=== PATIENT | male | born 1970 | race African-American/Black ===

== ENCOUNTER 2024-12-27 08:41 | Outpatient (CLI) | payer OTHER, SELFPAY ==
--- OUTSIDE RECORDS SUMMARY | 2024-12-27 09:02 | XMS_ITS | Data Portability ---
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 They differential diagnosis includes a neuropathic process that could be structural or metabolic. He has an abnormal neurological exam with the positive Romberg's impaired gait and abnormal sensory exam of the left lower extremity. The balance impairment is also concerning for a central cause, hence the need for imaging of the brain. I have had a detailed discussion with Mr. Escobar and I have explained the plan to him in detail as well as the differential diagnosis. lanny Not available 11/24/2024 16:30:38 Plan of Treatment Reminders Order Date Submit Date Provider Last Modified By Organization Details Last Modified Time Details Appointments ANY 15 2024 11:45A M Irena Hwang MD Not available Not available Not available Lab lipid panel, serum 2024 025 oajao [facility], [address], [address], [place], [address], 12/22/2024 11:46:43 AST/SG OT (aspar pulliam aminot ransfe rase), serum or plasma 2024 025 oaemiro [facility], [facility] [address], [address], [place], [address], 12/22/2024 11:46:11 cobala min and folate panel, serum 2024 025 lanny [facility], [address], [address], [place], [address], 12/22/2024 11:46:11 PSA, total, serum or plasma 2024 025 BRANDT [facility], [address], [address], [place], [address], 12/18/2024 09:11:58 CMP, serum or plasma 2024 025 [facility], [address], [address], [place], [address], 12/18/2024 09:11:53 urinal ysis macro (dipst ick) panel, urine 2024 [facility], [address], [address], [place], [address], 12/18/2024 09:11:55 CBC w/ auto diff 2024 025 [facility], [address] [facility] [address], [address], [place], [address], 12/18/2024 09:11:57 lipid panel, serum 2024 025 [facility], [address] [facility] [address], [address], [place], [address], 12/18/2024 09:11:52 Hepati tis C IgG Ab, qual, serum 2024 025 BR[facility]T [facility], [address], [address], [place], [address], 12/18/2024 09:11:51 HIV 1 + 2, meanin gful use set 2024 025 [facility], [address], [address], [place], [address], 12/18/2024 09:11:59 CBC 2024 025 [facility], [address], [address], [place], [address], 12/21/2024 16:57:56 vitami n D, 25-hyd shae, total, serum 2024 025 BRANDT [facility], [address], [address], [place], [address], 12/18/2024 09:11:59 vitami n B12, serum 2024 025 TOL[facility]O [facility], [address], [address], [place], [address], 12/18/2024 09:11:54 TSH, ultra- sensit gualberto, serum 2024 025 [facility], [address], [address], [place], [address], 12/18/2024 09:11:56 Referral urolog ist referr al 2024 025 ATHDULCE MARIAX [facility], [address] [place] [address], [address], [place], [address], 12/23/2024 14:40:00 pulmon ologis t referr al 2024 025 NYA Real MD, [address] [place], [address], 12/23/2024 14:39:49 gastro entero logist referr al [email or web address] [facility], [address], [place], [address], 11/26/2024 10:19:12 Procedures colono scopy proced ure (PROC) - If patien t is on blood thinne r less than 6 month, cleara nce is requir ed by prescr ibing provid er. If patien t is on blood thinne r over 6 months , blood thinne r is suppos ed to stoppe d 5 days prior to proced ure. Pacema ker or defibr illato r?: N Prep (Colon oscopy Proced ure): PEG 3350, Go Lytely , Colyte or Gavaly te G, depend ing on insura nce covera ge If patien t has had villela ry / vascul ar stent, provid e date: No If patien t has had heart attack or stroke , provid e date: No Has patien t ever had proble ms with anesth esia or sedati on?: No Has patien t had proble ms with openin g mouth or breath ing tubes? : No Does patien t use a wheelc hair?: N 2024 025 [facility] ([facility] Sched), [address] [place], [address], 12/20/2024 10:37:06 nerve conduc tion study/ EMG, lower extrem ity (PROC) - L>R LE numbne ss and weakne ss 2024 025 [facility] (Cardiology & Emg), [address], [place], [address], 12/22/2024 11:59:14 Surgeries None record ed. Imaging XR, thorac ic spine - Compre ssion deform ity of T8 on the LDCT 2024 025 [facility] (One Call Scheduling), [address] [place], [address], 12/22/2024 12:01:31 XR, lumbos acral spine, comple te - Back pain, L>R lower extrem ity weakne ss and numbne ss 2024 025 [facility] (One Call Scheduling), [address] [place], [address], 12/09/2024 10:57:42 MRI, brain, w/o contra st - Poor balanc e, severe headac hes 2024 025 [facility] (One Call Scheduling), [address] [place], [address], 12/22/2024 11:59:00 LDCT, chest, for lung cancer screen ing 2024 025 [facility] (One Call Scheduling), [address] [place], [address], 12/10/2024 15:55:36 Medication Orders Dulcol ax (bisac odyl) 5 mg tablet ,delay ed releas e 2024 025 [id number], [address], [place], [place], [id number], 12/02/2024 11:52:41 Mirala x 17 gram/d ose oral powder 2024 025 [facility] #[id number], [address] , [place], [place], [id number], 12/02/2024 11:52:40 Patient TargetsNo targets recorded. Patient Instructions Encounter Date Encounter Id Patient Instructions Last Modified By Organization Details Last Modified Time 11/24/2024 [id number] Copy of the old CT scan of the brain from [facility], please Labs GI Stop smoking Xrays MRI LDCT EMG/NCS Prevnar on the follow up if he agrees, pt education materials ruth provided Follow up in 4 weeks lanny Not available 11/25/2024 09:09:30 Very detailed initial visit. oajao Not available 11/25/2024 09:09:55 12/02/2024 [id number] RL About Your Colonoscopy 1 Day Prep [email or web address] Not available 12/02/2024 11:52:35 12/22/2024 [id number] compression fracture of the spine: care instructions [email or web address] Not available 12/22/2024 11:44:08 X rays MRI and EMG/NCS as previously ordered Low fat, low CHO diet Stop smoking Labs in 4 weeks Urology Pulmonology Follow up in 6 weeks [email or web address] Not available 12/22/2024 11:47:49 Reason for Referral Installation Technician Referral for Screening for malignant neoplasm of colon Colon cancer screening, please Referring Physician: Irena Hwang, Internal Medicine, Encounter Date: 11/24/2024 [place] Monitoring Technician Referral for C T of chest abnormal Abnormal LDCT Referring Physician: Irena Hwang, Internal Medicine, Encounter Date: 12/22/2024 Urologist Referral for Micro scopic hematuria Microscopic hematuria Referring Physician: Irena Hwang, Internal Medicine, Encounter Date: 12/22/2024 Results Created Date Observation Date Name Description Value Unit Range Abnormal Flag Note LastModifiedBy Organization Detail LastModifiedTime 12/18/1912/18/2024 HCV ANTIB NELLY hep C virus Ab NON REACTI VE nonrea ctive HCV antib nelly alone does not diffe renti ate betwe en previ ously resol jennifer infec tion and activ e infec tion. Equiv ocal and React gualberto HCV antib nelly resul ts shoul d be follo wed up with an HCV RNA test to suppo rt the diagn osis of activ e HCV infec tion. Not Available [facility] ([facility]) [address], [place], [address], 12/18/2024 09:11:51 12/18/19 25 12/18/2024 LIPID PANEL cholesterol, total 188 mg/dL 100-19 9 Not Available [facility] ([facility]) [address], [place], [address], 12/18/2024 09:11:52 12/18/19 25 12/18/2024 LIPID PANEL triglyceride s 82 mg/dL 0-149 Not Available [facility] ([facility]) [address] [place], [address], 12/18/2024 09:11:52 12/18/19 25 12/18/2024 LIPID PANEL HDL cholesterol 61 mg/dL >39 Not Available [facility] ([facility]) [address] [place], [address], 12/18/2024 09:11:52 12/18/19 25 12/18/2024 LIPID PANEL VLDL cholesterol susie 15 mg/dL 5-40 Not Available [facility] ([facility]) [address] [place], [address], 12/18/2024 09:11:52 12/18/19 25 12/18/2024 LIPID PANEL LDL chol calc ([facility]) 112 mg/dL 0-99 above high normal Not Available [facility] ([facility]) [address] [place], [address], 12/18/2024 09:11:52 12/18/19 25 12/18/2024 COMP. METAB OLIC PANEL (14) glucose 90 mg/dL 70-99 Not Available [facility] ([facility]) [address] [place], [address], 12/18/2024 09:11:53 12/18/19 25 12/18/2024 COMP. METAB OLIC PANEL (14) BUN 8 mg/dL 6-24 Not Available [facility] ([facility]) [address] [place], [address], 12/18/2024 09:11:53 12/18/19 25 12/18/2024 COMP. METAB OLIC PANEL (14) creatinine 0.94 mg/dL 0.76-1 .27 Not Available [facility] ([facility]) [address] [place], [address], 12/18/2024 09:11:53 12/18/19 25 12/18/2024 COMP. METAB OLIC PANEL (14) eGFR 95 mL/mi n/1.7 3 >59 Not Available [facility] ([facility]) [address], [place], [address], 12/18/2024 09:11:53 12/18/19 25 12/18/2024 COMP. METAB OLIC PANEL (14) BUN/creatini ne ratio 9 9-20 Not Available [facility] ([facility]) [address], [place], [address], 12/18/2024 09:11:53 12/18/19 25 12/18/2024 COMP. METAB OLIC PANEL (14) sodium 140 mmol/ L 134-14 4 Not Available [facility] ([facility]) [address], [place], [address], 12/18/2024 09:11:53 12/18/19 25 12/18/2024 COMP. METAB OLIC PANEL (14) potassium 4.0 mmol/ L 3.5-5. 2 Not Available [facility] ([facility]) [address], [place], [address], 12/18/2024 09:11:53 12/18/19 25 12/18/2024 COMP. METAB OLIC PANEL (14) chloride 103 mmol/ L 96-106 Not Available [facility] ([facility]) [address], [place], [address], 12/18/2024 09:11:53 12/18/19 25 12/18/2024 COMP. METAB OLIC PANEL (14) carbon dioxide, total 19 mmol/ L 20-29 below low normal Not Available [facility] ([facility]) [address], [place], [address], 12/18/2024 09:11:53 12/18/19 25 12/18/2024 COMP. METAB OLIC PANEL (14) calcium 9.1 mg/dL 8.7-10 .2 Not Available [facility] ([facility]) [address], [place], [address], 12/18/2024 09:11:53 12/18/19 25 12/18/2024 COMP. METAB OLIC PANEL (14) protein, total 7.3 g/dL 6.0-8. 5 Not Available [facility] ([facility]) [address], [place], [address], 12/18/2024 09:11:53 12/18/19 25 12/18/2024 COMP. METAB OLIC PANEL (14) albumin 4.3 g/dL 3.8-4. 9 Not Available [facility] ([facility]) [address], [place], [address], 12/18/2024 09:11:53 12/18/19 25 12/18/2024 COMP. METAB OLIC PANEL (14) globulin, total 3.0 g/dL 1.5-4. 5 Not Available [facility] ([facility]) [address], [place], [address], 12/18/2024 09:11:53 12/18/19 25 12/18/2024 COMP. METAB OLIC PANEL (14) bilirubin, total <0.2 mg/dL 0.0-1. 2 Not Available [facility] ([facility]) [address], [place], [address], 12/18/2024 09:11:53 12/18/19 25 12/18/2024 COMP. METAB OLIC PANEL (14) alkaline phosphatase 101 IU/L 44-121 Not Available [facility] ([facility]) [address], [place], [address], 12/18/2024 09:11:53 12/18/19 25 12/18/2024 COMP. METAB OLIC PANEL (14) AST (SGOT) 47 IU/L 0-40 above high normal Not Available [facility] ([facility]) [address], [place], [address], 12/18/2024 09:11:53 12/18/19 25 12/18/2024 COMP. METAB OLIC PANEL (14) ALT (SGPT) 43 IU/L 0-44 Not Available [facility] ([facility]) [address], [place], [address], 12/18/2024 09:11:53 12/18/19 25 12/18/2024 MICRO SCOPI C EXAMI NATIO N WBC 0-5 /hpf 0-5 Not Available [facility] ([facility]) [address], [place], [address], 12/18/2024 09:11:54 12/18/19 25 12/18/2024 MICRO SCOPI C EXAMI NATIO N RBC NONE SEEN /hpf 0-2 Not Available [facility] ([facility]) [address], [place], [address], 12/18/2024 09:11:54 12/18/19 25 12/18/2024 MICRO SCOPI C EXAMI NATIO N epithelial cells (non renal) 0-10 /hpf 0-10 Not Available [facility] ([facility]) [address], [place], [address], 12/18/2024 09:11:54 12/18/19 25 12/18/2024 MICRO SCOPI C EXAMI NATIO N casts NONE SEEN /lpf nonese en Not Available [facility] ([facility]) [address] [place], [address], 12/18/2024 09:11:54 12/18/19 25 12/18/2024 MICRO SCOPI C EXAMI NATIO N bacteria NONE SEEN nonese en/few Not Available [facility] ([facility]) [address] [place], [address], 12/18/2024 09:11:54 12/18/19 25 12/18/2024 VITAM IN B12 vitamin B12 423 pg/mL 232-12 45 Not Available [facility] ([facility]) [address], [place], [address], 12/18/2024 09:11:54 12/18/19 25 12/18/2024 URINA LYSIS , ROUTI NE specific gravity 1.024 1.005- 1.030 Not Available [facility] ([facility]) [address] [place], [address], 12/18/2024 09:11:55 12/18/19 25 12/18/2024 URINA LYSIS , ROUTI NE pH 5.5 5.0-7. 5 Not Available [facility] ([facility]) [address] [place], [address], 12/18/2024 09:11:55 12/18/19 25 12/18/2024 URINA LYSIS , ROUTI NE urine-color YELLOW yellow Not Available [facility] ([facility]) [address] [place], [address], 12/18/2024 09:11:55 12/18/19 25 12/18/2024 URINA LYSIS , ROUTI NE appearance CLEAR clear Not Available [facility] ([facility]) [address] [place], [address], 12/18/2024 09:11:55 12/18/19 25 12/18/2024 URINA LYSIS , ROUTI NE WBC esterase NEGATI VE negati ve Not Available [facility] ([facility]) [address] [place], [address], 12/18/2024 09:11:55 12/18/19 25 12/18/2024 URINA LYSIS , ROUTI NE protein 1+ negati ve/tra ce abnormal Not Available [facility] ([facility]) [address] [place], [address], 12/18/2024 09:11:55 12/18/1912/18/2024 URINA LYSIS , ROUTI NE glucose NEGATI VE negati ve Not Available [facility] ([facility]) [address] [place], [address], 12/18/2024 09:11:55 12/18/19 25 12/18/2024 URINA LYSIS , ROUTI NE ketones NEGATI VE negati ve Not Available [facility] ([facility]) [address] [place], [address], 12/18/2024 09:11:55 12/18/19 25 12/18/2024 URINA LYSIS , ROUTI NE occult blood 1+ negati ve abnormal Not Available [facility] ([facility]) [address] [place], [address], 12/18/2024 09:11:55 12/18/19 25 12/18/2024 URINA LYSIS , ROUTI NE bilirubin NEGATI VE negati ve Not Available [facility] ([facility]) [address] [place], [address], 12/18/2024 09:11:55 12/18/1912/18/2024 URINA LYSIS , ROUTI NE urobilinogen ,semi-qn 0.2 mg/dL 0.2-1. 0 Not Available [facility] ([facility]) [address] [place], [address], 12/18/2024 09:11:55 12/18/1912/18/2024 URINA LYSIS , ROUTI NE nitrite, urine NEGATI VE negati ve Not Available [facility] ([facility]) [address] [place], [address], 12/18/2024 09:11:55 12/18/1912/18/2024 NAIMA LYSIS , ELDER NE microscopic examination SEE BELOW: Micro scopi c was indic ated and was perfo rmed. Not Available [facility] ([facility]) [address] [place], [address], 12/18/2024 09:11:55 12/18/19 25 12/18/2024 TSH TSH 0.457 uIU/m L 0.450- 4.500 Not Available [facility] ([facility]) [address] [place], [address], 12/18/2024 09:11:56 12/18/1912/18/2024 CBC WITH DIFFE RENTI AL/PL ATELE T WBC 4.8 x10e3 /uL 3.4-10 .8 Not Available [facility] ([facility]) [address], [place], [address], 12/18/2024 09:11:57 12/18/1912/18/2024 CBC WITH DIFFE RENTI AL/PL ATELE T RBC 4.17 x10e6 /uL 4.14-5 .80 Not Available [facility] ([facility]) [address] [place], [address], 12/18/2024 09:11:57 12/18/1912/18/2024 CBC WITH DIFFE RENTI AL/PL ATELE T hemoglobin 13.9 g/dL 13.0-1 7.7 Not Available [facility] ([facility]) [address] [place], [address], 12/18/2024 09:11:57 12/18/1912/18/2024 CBC WITH DIFFE RENTI AL/PL ATELE T hematocrit 42.5 % 37.5-5 1.0 Not Available [facility] ([facility]) [address] [place], [address], 12/18/2024 09:11:57 12/18/1912/1812/18/2024 CBC WITH DIFFE RENTI AL/PL ATELE T MCV 102 fL 79-97 above high normal Not Available [facility] ([facility]) [address] [place], [address], 12/18/2024 09:11:57 12/18/19 25 12/18/2024 CBC WITH DIFFE RENTI AL/PL ATELE T MCH 33.3 pg 26.6-3 3.0 above high normal Not Available [facility] ([facility]) [address] [place], [address], 12/18/2024 09:11:57 12/18/1912/18/2024 CBC WITH DIFFE RENTI AL/PL ATELE T MCHC 32.7 g/dL 31.5-3 5.7 Not Available [facility] ([facility]) [address] [place], [address], 12/18/2024 09:11:57 12/18/1912/18/2024 CBC WITH DIFFE RENTI AL/PL ATELE T RDW 12.8 % 11.6-1 5.4 Not Available [facility] ([facility]) [address] [place], [address], 12/18/2024 09:11:57 12/18/1912/18/2024 CBC WITH DIFFE RENTI AL/PL ATELE T platelets 270 x10e3 /uL 150-45 0 Not Available [facility] ([facility]) [address] [place], [address], 12/18/2024 09:11:57 12/18/1912/18/2024 CBC WITH DIFFE RENTI AL/PL ATELE T neutrophils 55 % notest ab. Not Available [facility] ([facility]) [address] [place], [address], 12/18/2024 09:11:57 12/18/1912/18/2024 CBC WITH DIFFE RENTI AL/PL ATELE T lymphs 30 % notest ab. Not Available [facility] ([facility]) [address] [place], [address], 12/18/2024 09:11:57 12/18/19 25 12/18/2024 CBC WITH DIFFE RENTI AL/PL ATELE T monocytes 10 % notest ab. Not Available [facility] ([facility]) [address], [place], [address], 12/18/2024 09:11:57 12/18/19 25 12/18/2024 CBC WITH DIFFE RENTI AL/PL ATELE T eos 4 % notest ab. Not Available [facility] ([facility]) [address], [place], [address], 12/18/2024 09:11:57 12/18/1912/18/2024 CBC WITH DIFFE RENTI AL/PL ATELE T basos 1 % notest ab. Not Available [facility] ([facility]) [address], [place], [address], 12/18/2024 09:11:57 12/18/19 25 12/18/2024 CBC WITH DIFFE RENTI AL/PL ATELE T neutrophils (absolute) 2.6 x10e3 /uL 1.4-7. 0 Not Available [facility] ([facility]) [address] [place], [address], 12/18/2024 09:11:57 12/18/19 25 12/18/2024 CBC WITH DIFFE RENTI AL/PL ATELE T lymphs (absolute) 1.4 x10e3 /uL 0.7-3. 1 Not Available [facility] ([facility]) [address] [place], [address], 12/18/2024 09:11:57 12/18/19 25 12/18/2024 CBC WITH DIFFE RENTI AL/PL ATELE T monocytes(ab solute) 0.5 x10e3 /uL 0.1-0. 9 Not Available [facility] ([facility]) [address] [place], [address], 12/18/2024 09:11:57 12/18/19 25 12/18/2024 CBC WITH DIFFE RENTI AL/PL ATELE T eos (absolute) 0.2 x10e3 /uL 0.0-0. 4 Not Available [facility] ([facility]) [address] [place], [address], 12/18/2024 09:11:57 12/18/1912/18/2024 CBC WITH DIFFE RENTI AL/PL ATELE T baso (absolute) 0.0 x10e3 /uL 0.0-0. 2 Not Available [facility] ([facility]) [address] [place], [address], 12/18/2024 09:11:57 12/18/19 25 12/18/2024 CBC WITH DIFFE RENTI AL/PL ATELE T immature granulocytes 0 % notest ab. Not Available [facility] ([facility]) [address] [place], [address], 12/18/2024 09:11:57 12/18/19 25 12/18/2024 CBC WITH DIFFE RENTI AL/PL ATELE T immature grans (abs) 0.0 x10e3 /uL 0.0-0. 1 Not Available [facility] ([facility]) [address] [place], [address], 12/18/2024 09:11:57 12/18/1912/18/2024 PROST ATE-S PECIF IC AG prostate specific Ag 0.8 NG/mL 0.0-4. 0 Lindsay ECLIA metho dolog y. Accor ding to the Ameri can Urolo gical Assoc iatio n, Serum PSA shoul d decre ase and remai n at undet ectab le level s after radic al prost atect reed. The AUA defin es bioch emica l recur rence as an initi al PSA value 0.2 ng/mL or great er follo wed by a subse quent confi rmato ry PSA value 0.2 ng/mL or great er. Value s obtai karlie with diffe rent assay metho ds or kits canno t be used inter chawla eably . Resul ts canno t be inter prete d as absol jannie evide nce of the prese nce or absen ce of unity hospitalian fisher se. Not Available [facility] ([facility]) [address], [place], [address], 12/18/2024 09:11:58 12/18/1912/18/2024 VITAM IN D, 25-HY DROXY vitamin D, 25-hydroxy 10.5 NG/mL 30.0-1 00.0 below low normal Vitam in D defic iency has been defin ed by the Insti tute of Medic ine and an Endoc rine Socie ty pract ice guide line as a level of serum 25-OH vitam in D less than 20 ng/mL (1,2) . The Endoc rine Socie ty went on to furth er defin e vitam in D insuf ficie ncy as a level betwe en 21 and 29 ng/mL (2). 1. IOM (Inst itute of Medic ine). 2009. Dieta ry refer ence intak es for calci um and D. Heather molina [place]: The Natio nal [facility] Press . 2. Roberto harper MF, Mario torres [place], Bissg off-F errar i BREAUX, et al. Evalu ation , treat ment, and preve ntion of vitam in D defic iency : an Endoc rine Socie ty clini susie pract ice guide line. JCEM. 2010; 96(7) :1911 -30. Not Available [facility] ([facility]) [address], [place], [address], 12/18/2024 09:11:59 12/18/1912/18/2024 HIV AB/P2 4 AG WITH REFLE X HIV Ab/P24 Ag screen NON REACTI VE nonrea ctive HIV-1 /HIV- 2 antib odies and HIV-1 p24 antig en were NOT detec julia. There is no labor atory evide nce of HIV infec tion. HIV Negat gualberto Not Available [facility] ([facility]) [address], [place], [address], 12/18/2024 09:11:59 12/10/1912/09/2024 XR, lumbo sacra l spine , compl ete No observ ation record ed. [facility] [address] [place], [address], 12/22/2024 11:36:48 12/11/1912/09/2024 LDCT, chest , for lung cance r scree evelio No observ ation record ed. [facility] [address] [place], [address], 12/22/2024 11:36:48 Result Notes None recorded. 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 Procedures Surgical History Date Name Laterality Status Provider Name and Address Organization Details Recorded Time lumbar puncture completed Irena Hwang MD Attn: Accounting, [facility], [place], [address], [facility] [place] 11/24/2024 14:30:44 procedure on ear completed Irena Hwang MD Attn: Accounting, [facility], [place], [address], [facility] [place] 11/24/2024 14:31:17 Imaging Results None recorded. Procedure Notes None recorded. Medical Equipment None Reported. Allergies No known drug allergies Medications Name Sig Start Date Stop Date Status Note LastModified by Organization Details LastModified Time Miralax 17 gram/dose oral powder In a pitcher, mix entire bottle of Miralax in one 64 ounce bottle of yellow or green Gatorade. Beginning at 5:00 PM the evening before the colonoscopy , drink 1 8-ounce glass every 15 minutes until completed. Drink 4 glasses of water after finishing this mixture 025 active Not Available Not Available Not Avai lable Dulcolax (bisacodyl ) 5 mg tablet,del ayed release At 2:00 PM the day before the colonoscopy , take all 4 tablets of Dulcolax by mouth at one time with 8 ounces of water 025 active Not Available Not Available Not Avai lable Vitals Date Recorded Body height Body mass index (BMI) Body weight Oxygen saturation Oxygen saturation in Arterial blood by Pulse oximetry Heart rate Body temperature Respiratory rate Systolic And Diastolic Provider Name and Address Organization Details Last Updated DateTime 5 175.26 cm 21.6 kg/m2 75674.4 9 g 96 % 96 % 64 /min 98 [degF] 14 /min 110/80 mm[Hg] Valentina Escobar MA [facility] 5 14:15:45 Date Recorded Body height Body mass index (BMI) Body weight Oxygen saturation Oxygen saturation in Arterial blood by Pulse oximetry Body temperature Respiratory rate Heart rate Systolic And Diastolic Provider Name and Address Organization Details Last Updated DateTime 5 175.26 cm 20.6 kg/m2 10790.7 8 g 98 % 98 % 97 [degF] 16 /min 77 /min 143/79 mm[Hg] Shama Whitaker MA [facility] 5 11:44:46 Date Recorded Body height Body mass index (BMI) Body weight Body temperature Oxygen saturation Oxygen saturation in Arterial blood by Pulse oximetry Heart rate Systolic And Diastolic Provider Name and Address Organization Details Last Updated DateTime 5 175.26 cm 21.2 kg/m2 01786.1 5 g 98.7 [degF] 96 % 96 % 82 /min 120/68 mm[Hg] America Bonds [place] - [facility] 5 11:20:19 Social History Question Answer Notes LastModified by Organizat ion Details LastModified Time Tobacco Smoking Status Current Some Day Smoker Cigarettes 8 years, ~ 3 PPD Cigars every now and then 10 years Irena Hwang MD Attn: Accounting,[address] [place], [address], [facility] 11/24/2024 14:30:12 Do You Have An Advance Directive? No Information not available 12/02/2024 How Many Years Have You Consumed Alcohol? 13 Information not available 11/24/2024 Are You Blind Or Do You Have Difficulty Seeing? No Information not available 11/24/2024 What Is Your Level Of Caffeine Consumption? Occasional Information not available 11/24/2024 In The 14 Days Before Symptom Onset, Have You Had Close Contact With A Laboratory-confi rmed COVID-19 While That Case Was Ill? No Information not available 12/02/2024 In The 14 Days Before Symptom Onset, Have You Had Close Contact With A Person Who Is Under Investigation For COVID-19 While That Person Was Ill? No Information not available 12/02/2024 Have You Been To An Area Known To Be High Risk For COVID-19? No Information not available 12/02/2024 Are You Deaf Or Do You Have Serious Difficulty Hearing? No Information not available 11/24/2024 What Type Of Diet Are You Following? REGULAR Information not available 11/24/2024 Do You Have A Medical Power Of [place] [employer]? No Information not available 12/02/2024 What Was The Date Of Your Most Recent Tobacco Screening? 12/22/2024 [email or web address] Information not available 12/22/2024 What Is Your Current Pack Years? 20-29packyear s Information not available 11/24/2024 At What Age Did You Start Smoking Tobacco? 11 Information not available 11/24/2024 How Much Tobacco Do You Smoke? 1 PPW for 7 Yrs, Smoked About 3 Packs A Day Information not available 11/24/2024 Has Tobacco Cessation Counseling Been Provided? No Information not available 11/24/2024 How Many Years Have You Smoked Tobacco? 7 Information not available 11/24/2024 Sex: Unknown Functional Status Question Answer Note LastModified by Organizat ion Details LastModified Time Do you use any illicit or recreational drugs? Yes Marijuana Information not available 11/24/2024 Do you or have you ever used any other forms of tobacco or nicotine? No Information not available 11/24/2024 What is your level of alcohol consumption? Occasional Information not available 11/24/2024 Are you currently employed? No Information not available 11/24/2024 Are you able to care for yourself? Yes Information not available 11/24/2024 What is your exercise level? Moderate Information not available 11/24/2024 Mental Status None recorded. Family History Nothing Reported. Medical History Condition Response Coronary Artery Disease N Other N High Blood Pressure N Atrial Fibrillation N Thyroid Problems N Kidney or Bladder Problems N Blood Clots N COPD N Depression N GI Problems N Have you had a mammogram in the last yea r? N Skin Problems N Anemia N Heart Attack (HI) N Anxiety Disorder N Diabetes N Muscle, Joint, or Bone Problems N Seizures/Epilepsy N Have you had a colonoscopy in the last 1 0 years? N Acid Reflux (GERD) N Cancer N Stroke N Asthma N Allergies N Have you had a PSA blood test in the las t year? N High Cholesterol N Hepatitis N Liver Disease N Headaches Y Heart Failure N Osteoporosis N Immunizations Vaccine Type Date Status Note Provider Nam e and Address Organization Details Recorded Time Influenza, split virus, trivalent, preservative 2 completed Not Available [facility] 12/22/2024 11:11:10 Influenza, split virus, quadrivalent, PF 8 completed Not Available [facility] 12/22/2024 11:11:10 Influenza, split virus, quadrivalent, preservative 9 completed Not Available [facility] 12/22/2024 11:11:10 Influenza, split virus, quadrivalent, PF 0 completed Not Available [facility] 12/22/2024 11:11:10 COVID-19, mRNA, LNP-S, PF, 30 mcg/0.3 mL dose 1 completed Not Available [facility] 12/22/2024 11:11:10 COVID-19, mRNA, LNP-S, PF, 30 mcg/0.3 mL dose 1 completed Not Available [facility] 12/22/2024 11:11:10 Influenza, split virus, quadrivalent, PF 2 completed Not Available [facility] 12/22/2024 11:11:10 Influenza, MDCK, quadrivalent, PF 4 completed Not Available [facility] 12/22/2024 11:11:10 Influenza, MDCK, trivalent, PF 4 completed Not Available [facility] 12/22/2024 11:11:10 Past Encounters Encounter ID Performer Location Encounter Start Date Encounter Closed Date Diagnosis/Indication Diagnosis SNOMED-CT Code Diagnosis ICD10 Code Diagnosis Note [id number] MD Brando Roy (Adult Med) [address] [place] [address] 11/24/2024 14:01:02 11/25/2024 09:14:59 General examination of patient 045361525 Z00.01 Screening for malignant neoplasm of colon 358402856 Z12.11 Screening for malignant neoplasm of prostate 833773640 Z12.5 Weakness o f bilateral lower limb 4534426698 56391 R29.898 Numbness o f lower limb 193666089 R20.0 Impairment of balance 38 4661049 R26.89 History of nicotine dependence 9491171693 41867040 Z87.891 He smoked at least 3 packs a day for 8 years and now smokes cigars he said his smoking at age 11. I have strongly encouraged him to stop smoking and he needs a low-dose CT scan to screen for lung cancer. 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 [id number] Becca Anand DO [facility] [address] [place] [address] 12/02/2024 11:28:07 12/02/2024 12:42:35 Screening for malignant neoplasm of colon 136506666 Z12.11 discussed complicati on risks and procedure with the patient I have answered all his questions he is currently under evaluation from some neurologic al problem with weakness lower extremitie s and anxiety [id number] Irena Hwang MD [facility] (Adult Med) [address] [place] [address] 12/22/2024 11:09:41 12/23/2024 11:09:12 Lumbar spondylosis 557699790 M47.816 Microscopic hematuria 19 3884115 R31.29 Enzyme lev el - finding 318164700 R74.01 ETOH? CT of chest abnormal 948 7310700 5457764 R93.89 Compressio n fracture of vertebral column 49857913 M43.9 Low densit y lipoprotein cholesterol above reference range 665806556 E78.00 Laboratory test result abnormal 807841916 R89.9 Atheroscle rosis of aorta 24422799 I70.0 Health Concerns Section Related Observation LastModified by Organization Detai ls LastModified Time None Recorded Concern Status LastModified by Organization Details LastModified Time None Recorded Advance Directives Directive N: Payers Insurance Date Sequence Insurance Name Policy Number Policy Kelly Covered Member ID Kelly Member ID Guarantor Name 12/21/2024 1 [facility] (MEDICAID HMO) [id number] Daniel Escobar [id number] Daniel Mcdonnellmemarivel Notes Date Note Type Note Provider Name and Address Organization Details Recorded Time 11/24/2024 text/html HeadacheReported bypatient.[facility] Quality:worst headache ever;aching Severity:severe Duration:intermittent Onset/Timing:worse; abrupt onset; occur every few weeks Context:related to trauma(?) Aggravating factors:nothing makes it worse Alleviating factors:laying in a dark room Associated Symptoms:no vomiting; tearing/watery eyes; no confusion; no slurred speech; no preceeding aura; no double vision; normal feeling/sensation; no motor paralysis; no dizziness; no sleep disturbances; no nosebleeds; no hoarseness; no sore throat; no hearing loss;photophobia I have been having trouble standingI am off balance when I walk, I walk to the sideThese Migraines It's numbness, weakness and it is tingling PMHX Migraines, Nicotine use 54 y/o right-handed BM who presents as a new patient, he has no PCP and usually uses the ER. He was in his usual state of health until about a year ago when while standing at the [facility], he noticed that his left leg started giving out, this is worsened with involvement of both legs and numbness, tingling and weakness. The symptoms occur after standing for about 10-15 minutes with the need to lean on to something, he has some musculoskeletal pain including back pain and has also noticed that he is off balance with him veering away from a straight line when he is walking. His severe headaches have also returned, they are bilateral and may have started after trauma to the left ear several years ago, he was previously seen in the emergency room and describes what sounds like a lumbar puncture, there has been no loss of consciousness, urinary incontinence or falls. He has also had a 5 lb weight loss but he feels otherwise well Irena Hwang MD Attn: Accounting,[address] [place], [address], [facility] - [facility] 11/25/2024 09:10:35 12/22/2024 text/html Mr Escobar returns. Irena Hwang MD Attn: Accounting,[address] [place], [address], [facility] - [facility] 12/22/2024 19:49:59
--- NOTE | 2024-12-27 11:15 | NEURO_ITS ---
Impression: # Complains of numbness of lower extremities. Non-diabetic. ? # Normal motor and sensory Nerve Conduction Study. ? # Normal needle/EMG exam. ? # Clinical correlation recommended. ?Nerve Conduction Studies ?Stim Site NR Peak (ms) P-T Amp (?V) Site1 Site2 Delta-P (ms) Dist (cm) Adolph (m/s) Left Sup Fibular Anti Sensory (Ant Lat Mall) 14 cm ? 3.8 9.1 14 cm Ant Lat Mall 3.8 16.0 42 Right Sup Fibular Anti Sensory (Ant Lat Mall) 14 cm ? 3.4 13.8 14 cm Ant Lat Mall 3.4 16.0 47 Left Sural Anti Sensory (Lat Mall) Calf ? 3.3 10.1 Calf Lat Mall 3.3 16.0 48 Right Sural Anti Sensory (Lat Mall) Calf ? 3.9 7.4 Calf Lat Mall 3.9 18.0 46 ?Stim Site NR Onset (ms) O-P Amp (mV) Site1 Site2 Delta-0 (ms) Dist (cm) Adolph (m/s) Left Peroneal Motor (Vastus Med) Ankle ? 4.1 5.6 Popit Ankle 8.9 44.0 49 Popit ? 13.0 4.5 Right Peroneal Motor (Vastus Med) Ankle ? 4.1 4.7 Popit Ankle 8.1 39.0 48 Popit ? 12.2 2.5 Left Tibial Motor (Abd Jacob Brev) Ankle ? 4.9 1.2 Knee Ankle 9.2 45.0 49 Knee ? 14.1 1.1 Right Tibial Motor (Abd Jacob Brev) Ankle ? 5.0 8.3 Knee Ankle 9.5 43.0 45 Knee ? 14.5 4.8 Electromyography ?Side Muscle Nerve Root Ins Act Fibs Amp Dur Recrt Comment Right AntTibialis Dp Br Fibular L4-5 Nml Nml Nml Nml Nml Right Gastroc Tibial S1-2 Nml Nml Nml Nml Nml Right Fibularis Long Sup Br Fibular L5-S1 Nml Nml Nml Nml Nml Right Flex Dig Long Tibial L5-S2 Nml Nml Nml Nml Nml Right Ext Dig Brev Dp Br Fibular L5, S1 Nml Nml Nml Nml Nml Right QuadratusFem QuadFemoris L4-5, S1 Nml Nml Nml Nml Nml Left AntTibialis Dp Br Fibular L4-5 Nml Nml Nml Nml Nml Left Gastroc Tibial S1-2 Nml Nml Nml Nml Nml Left Fibularis Long Sup Br Fibular L5-S1 Nml Nml Nml Nml Nml Left Flex Dig Long Tibial L5-S2 Nml Nml Nml Nml Nml Left Ext Dig Brev Dp Br Fibular L5, S1 Nml Nml Nml Nml Nml Left QuadratusFem QuadFemoris L4-5, S1 Nml Nml Nml Nml Nml
== END 2024-12-27 08:42 | disposition home or self-care (01) ==
LOC: ANHNEURO 08:48
PROVIDERS: PCP Internal Medicine Infectious Disease; Visit Provider Internal Medicine Infectious Disease
DX: R20.0 Anesthesia of skin (principal)
CPT/HCPCS: 95886; 95910